=== PATIENT | male | born 1960 | race African-American/Black ===

== ENCOUNTER 2017-05-10 13:30 | Inpatient (IN) | payer MEDICAID, OTHER ==
[~2017-05-10] VITALS: Ht 185.4 cm; Wt 84.4 kg
[~2017-05-10 13:30] MED LIST: ASPI-867 PO; GLIP5TAB12 PO; LIP40 PO; METF10002 PO
[2017-05-10] MEDS ORDERED: LISI10TA5 PO (13:35)
[2017-05-10] MEDS ORDERED: CLOP75TA33 PO (13:35)
[2017-05-10] MEDS ORDERED: CHOL400T15 PO (13:35)
[2017-05-10 15:38] LABS: BASOPHILS % 0.6 % (0.0-2.0); EOSINOPHILS % 1.8 % (0.0-5.0); HEMATOCRIT. 38.1 % (42.0-52.0); LYMPHOCYTES % 13.7 % (20.0-50.0); MEAN CORPUSCULAR HEMOGLOBIN 29.4 pg (28.0-32.0); MEAN PLATELET VOLUME 7.1 fl (7.4-10.4); MONOCYTES % 7.2 % (2.0-8.0); NEUTROPHILS % 76.7 % (40.0-76.0); PLATELET 193 x1000/uL (130-400); RED BLOOD CELL COUNT 4.43 mill/uL (4.7-6.1)
[2017-05-10 15:42] LABS: CHLORIDE 108 mEq/L (98-107)
[2017-05-10 15:44] LABS: INR 1.1; PROTHROMBIN TIME 11.7 sec
[2017-05-10 15:48] LABS: CARBON DIOXIDE 28 mEq/L (21-32); ETHANOL BLOOD < 10 mg/dL
[2017-05-10 15:53] LABS: TROPONIN I 0.04 ng/mL (0.00-0.04)
[2017-05-10 16:29] LABS: CLARITY URINE CLEAR (CLEAR); COLOR URINE YELLOW (YELLOW); KETONES URINE TRACE (NEGATIVE); LEUKOCYTE ESTERASE URINE NEGATIVE (NEGATIVE); NITRITE URINE NEGATIVE (NEGATIVE); OCCULT BLOOD URINE NEGATIVE (NEGATIVE); PH URINE 5.5 (4.5-8.0); PROTEIN URINE NEGATIVE (NEGATIVE); SPECIFIC GRAVITY URINE 1.023 (1.005-1.030)
[2017-05-10 16:43] LABS: *AMPHETAMINES SCREEN URINE NEGATIVE (NEGATIVE); *BARBITURATES SCREEN URINE NEGATIVE (NEGATIVE); *BENZODIAZEPINES SCREEN URINE NEGATIVE (NEGATIVE); *COCAINE SCREEN URINE NEGATIVE (NEGATIVE); CANNABINOID URINE SCREEN NEGATIVE (NEGATIVE); METHADONE URINE SCREEN NEGATIVE (NEGATIVE); PHENCYCLIDINE URINE SCREEN NEGATIVE (NEGATIVE)
[2017-05-10 17:00] LABS: OPIATES URINE SCREEN NEGATIVE (NEGATIVE)
[2017-05-10] MEDS ORDERED: ATOR80TA PO (21:31)
[2017-05-10] MEDS ORDERED: FISH OIL PO (21:31)
[2017-05-10] MEDS ORDERED: CHOL500010 PO (21:31)
[2017-05-11] MEDS ORDERED: DIPHENHYDRAMINE 50MG/ML VIAL IV PRN (01:15)
[2017-05-11] MEDS ORDERED: ACETAMINOPHEN 325MG TABLET PO PRN (01:15)
[2017-05-11] MEDS ORDERED: ONDANSETRON HCL 4MG/2ML VIAL IV PRN (01:15)
[2017-05-11] MEDS ORDERED: DEXTROSE 50% WATER 50ML SYRINGE IV PRN (01:15)
[2017-05-11] MEDS: BLOOD SUGAR DIAGNOSTIC STRIP TEST SCH ×2 (06:25→11:45)
[2017-05-11] MEDS: INSULIN LISPRO 100 UNITS/ML SUBCUT SCH ×2 (06:27→13:32)
[2017-05-11] MEDS: SODIUM CHLORIDE 0.9% INJ 3ML FLUSH IVF SCH ×2 (06:28→13:33)
[2017-05-11] MEDS ORDERED: CLOPIDOGREL 75MG TABLET PO SCH (09:00)
[2017-05-11] MEDS ORDERED: LISINOPRIL 5MG TABLET PO SCH (09:00)
[2017-05-11] MEDS ORDERED: ASPIRIN 325MG EC TABLET PO SCH (09:00)
[2017-05-11 16:00] VITALS: BP 145/80
[2017-05-11] MEDS ORDERED: ATORVASTATIN CALCIUM 40MG TABLET PO SCH (21:00)
== END 2017-05-11 16:25 | disposition home or self-care (01) | DRG 45 ==
LOC: ER 13:32 → 5WST 18:02 → EDBEDREQ 18:19 → EDBEDREQSVC 18:19 → CANRESERV 18:30 → ENRESERV 18:30
PROVIDERS: ADMIT Internal Medicine; ATTEND Internal Medicine
DX: I63.9 Cerebral infarction, unspecified (principal); E44.1 Mild protein-calorie malnutrition; I10 Essential (primary) hypertension; E11.9 Type 2 diabetes mellitus without complications; E78.00 Pure hypercholesterolemia, unspecified; G47.00 Insomnia, unspecified; Z82.49 Family history of ischemic heart disease and other diseases of the circulatory system; Z79.82 Long term (current) use of aspirin; Z79.84 Long term (current) use of oral hypoglycemic drugs; Z79.899 Other long term (current) drug therapy; Z72.89 Other problems related to lifestyle
CPT/HCPCS: 36415; 70450; 70551; 71010; 80053; 80305; 81003; 82962; 84484; 85025; 85610; 93005; 97162; 99285; G0482; J1815

== ENCOUNTER 2019-11-08 10:47 | Emergency (ER) | payer MEDICAID ==
[~2019-11-08] VITALS: Ht 167.6 cm; Wt 72.0 kg
[~2019-11-08 10:47] MED LIST changes: -ASPI-867 PO; +ATOR80TA PO; +CHOL500010 PO; +CLOP75TA33 PO; +FISH OIL PO; -GLIP5TAB12 PO; +LISI10TA5 PO; +METF-416 PO; -METF10002 PO
[2019-11-08 10:52] VITALS: BP 126/89
== END 2019-11-08 11:50 | disposition left against medical advice (07) ==
LOC: ER 10:47
DX: M79.662 Pain in left lower leg (principal); Z53.21 Procedure and treatment not carried out due to patient leaving prior to being seen by health care provider